=== PATIENT | male | born 1950 | race Caucasian/White ===

== ENCOUNTER 2023-04-13 17:20 | Emergency (ER) | payer MEDICARE, OTHER ==
[~2023-04-13] VITALS: Ht 162.6 cm; Wt 68.0 kg
[2023-04-13] MEDS ORDERED: AMLO10TA4 PO (17:44)
[2023-04-13] MEDS ORDERED: TAMS-3 PO (17:44)
[2023-04-13] MEDS ORDERED: ATOR20TA PO (17:44)
[2023-04-13] MEDS ORDERED: ASPI81TA31 PO (17:44)
[2023-04-13 18:48] VITALS: O2SAT 98
== END 2023-04-13 19:02 | disposition home or self-care (01) ==
LOC: ER 17:24
DX: H53.8 Other visual disturbances (principal); I10 Essential (primary) hypertension; E78.5 Hyperlipidemia, unspecified; Z79.82 Long term (current) use of aspirin; Z79.899 Other long term (current) drug therapy
CPT/HCPCS: A4606; A4663